=== PATIENT | female | born 1985 | race Caucasian/White ===

== ENCOUNTER → 2020-08-21 | Outpatient (CLI) | payer OTHER ==
[~2020-08-21] MED LIST: DOCU-109 PO; HYDR-2759 PO; METH-38 PO; NAPR220T70 PO; ONDA4TAB7 PO
[2020-08-21 15:23] LABS: BASO # 0.1 x10^3/uL (0.0-0.2); BASO % 1 % (0-3); EOS # 0.1 x10^3/uL (0.0-0.7); EOS % 1 % (0-3); HEMATOCRIT 37.3 % (36.0-47.0); HEMOGLOBIN 12.9 g/dL (12.0-15.5); LYMPH # 1.7 x10^3/uL (1.0-4.8); LYMPH % 20 % (24-48); MEAN CORPUSCULAR HEMOGLOBIN 32 pg (25-35); MEAN CORPUSCULAR HGB CONC 35 g/dL (31-37); MEAN CORPUSCULAR VOLUME 93 fL (79-100); MONO # 0.5 x10^3/uL (0.0-1.1); MONO % 6 % (0-9); NEUT % 72 % (31-73); PLATELET COUNT 233 x10^3/uL (140-400); RED BLOOD COUNT 4.01 x10^6/uL (3.50-5.40); RED CELL DISTRIBUTION WIDTH 11.9 % (11.5-14.5); WHITE BLOOD COUNT 8.3 x10^3/uL (4.0-11.0)
[2020-08-21 15:46] LABS: ALBUMIN/GLOBULIN RATIO 1.3 (1.0-1.7); CREATININE 0.6 mg/dL (0.6-1.0); GFR 113.8; POTASSIUM 3.7 mmol/L (3.5-5.1); TOTAL BILIRUBIN 0.3 mg/dL (0.2-1.0); TOTAL PROTEIN 7.2 g/dL (6.4-8.2)
== END ==
LOC: SURGPAT 13:37
PROVIDERS: ATTEND Neurological Surgery
DX: M51.17 Intervertebral disc disorders with radiculopathy, lumbosacral region (principal)
CPT/HCPCS: 36415; 80053; 85025; 87641

== ENCOUNTER → 2020-08-25 | Outpatient (CLI) | payer OTHER | LOC: LAB 10:04 | PROVIDERS: ATTEND Neurological Surgery | DX: Z01.812 Encounter for preprocedural laboratory examination (principal); M51.17 Intervertebral disc disorders with radiculopathy, lumbosacral region; Z20.822 Contact with and (suspected) exposure to COVID-19 | CPT/HCPCS: U0003 ==

== ENCOUNTER 2020-08-30 10:29 | Day surgery (SDC) | payer OTHER ==
--- NOTE | 2020-08-29 17:51 | PREOP HP ---
DATE OF SERVICE: 08/30/2020 PREOPERATIVE HISTORY AND PHYSICAL HISTORY OF PRESENT ILLNESS: The patient is a pleasant 35-year-old who is having difficulty with pain in her left buttock, posterior thigh and leg. The problem began in and she feels it possibly is related to heavy lifting at that time. Her pain currently is increased with activity or sitting too long. She is taking Aleve, which does help her. She has had physical therapy, which has not given her lasting relief. She has had epidural steroid injections, most recently in April, which have not given her lasting relief. She denies weakness or numbness. CURRENT MEDICATIONS: Aleve. PAST MEDICAL HISTORY: HPV. PAST SURGICAL HISTORY: [place] tooth extraction in 2002. FAMILY HISTORY: Heart disease, migraine headache, and spine problems. SOCIAL HISTORY: Nonsmoker. Employed in [employer]. Drinks alcohol 1-2 times per week. ALLERGIES: CEFACLOR. REVIEW OF SYSTEMS: A 12-point review of systems was performed and is noncontributory except that mentioned above. PHYSICAL EXAMINATION: GENERAL: Alert, pleasant, in no acute distress. HEAD: Normocephalic, atraumatic. SKIN: Warm and dry. MUSCULOSKELETAL: Lumbar paraspinal muscle bulk is normal, restricted range of motion of the lumbar spine, [id number] tenderness of the lower lumbar spine with palpation. Normal range of motion of the lower extremities bilaterally. EXTREMITIES: No clubbing, cyanosis or edema. NEUROLOGIC: Alert and oriented x 3, normal remote and recent memory. Strength is 5/5 in the bilateral lower extremities, sensory was intact to light touch in the lower extremities bilaterally. Reflexes were present and symmetric in the lower extremities bilaterally, positive straight leg raising on the right, positive crossed straight leg raising on the left, normal gait. IMAGING: I reviewed a lumbar MRI scan on that study, there is a right paracentral disc protrusion at L5-S1, which contacts the right S1 nerve root. ASSESSMENT AND PLAN: I believe her symptoms are related to the herniated disk at L5-S1 on the right. She has had extensive conservative measures with no lasting relief. I have recommended a microdiscectomy at L5-S1 on the right. I spoke with her about the surgery including the technique, risk and expected postoperative course. She understands and would like to proceed. GARRISON DUDLEY MD DR: IZABEL/camron JOB#: [id number] / [id number] DOROTHY
[~2020-08-30 10:29] MED LIST changes: +BACITRACIN 50,000 UNIT in IV NORMAL SALINE 1000ML BAG 1,000 ML IRR ONE; -DOCU-109 PO; +GELATIN SPONGE SIZE 100. ONE; -HYDR-2759 PO; +HYDROmorphone 2 MG/ML VIAL IV PRN; +IV RINGERS,LACTATED 1000ML 1,000 ML IV SCH; +KETOROLAC 60 MG/2 ML VIAL. ONE; +LIDOCAINE 1% PF 2 ML VIAL. ID PRN; +LIDOCAINE 1%/EPI 1:100,000 20 ML VIAL. INJ ONE; +LIDOCAINE 2%/EPI 1:100,000 20 ML VIAL. IJ ONE; -METH-38 PO; +MORPHINE SULFATE 2 MG/ML VIAL. IV PRN; -ONDA4TAB7 PO; +ONDANSETRON PF 4 MG/2 ML VIAL. IV PRN; +PROCHLORPERAZINE 10 MG/2 ML VIAL. IV PRN; +THROMBIN TOPICAL 20,000 UNIT SPRAY.SYRN KIT TP ONE; +VANCOMYCIN 1GM IVPB FOR OMNI 250 ML IV PRN; +fentaNYL PF VIAL 100 MCG/2 ML VIAL IV PRN
[2020-08-30] MEDS ORDERED: PHENYLEPHRINE 10 MG/ML VIAL. ONE (12:00)
[2020-08-30] MEDS ORDERED: DESFLURANE > 120 MINUTES IH ONE (12:00)
[2020-08-30] MEDS ORDERED: ROCURONIUM 50 MG/5 ML VIAL. ONE (12:04)
[2020-08-30] MEDS ORDERED: REMIFENTANIL 2 MG VIAL. IV ONE (12:04)
[2020-08-30] MEDS ORDERED: GLYCOPYRROLATE 1 MG/5 ML VIAL. ONE (12:11)
[2020-08-30] MEDS ORDERED: ONDANSETRON PF 4 MG/2 ML VIAL. ONE ×2 (12:13→15:47)
[2020-08-30] MEDS ORDERED: PROPOFOL 10 MG/ML (20ML) VIAL. IV ONE (12:13)
[2020-08-30] MEDS ORDERED: DEXAMETHASONE SOD PHOS 4 MG/ML VIAL ONE (12:13)
[2020-08-30] MEDS ORDERED: PROPOFOL 50 ML IV ONE (12:13)
[2020-08-30] MEDS ORDERED: fentaNYL PF VIAL 100 MCG/2 ML VIAL ONE (12:51)
[2020-08-30] MEDS ORDERED: DESFLURANE 61 TO 120 MINUTES IH ONE (13:35)
[2020-08-30] MEDS ORDERED: DEXAMETHASONE SOD PHOS 20 MG/5 ML VIAL. ONE (13:35)
[2020-08-30] MEDS ORDERED: NEOSTIGMINE METHYLSULFATE 5 MG/5 ML SYRINGE. ONE (15:47)
[2020-08-30] MEDS ORDERED: HYDR-2759 PO (16:09)
[2020-08-30] MEDS ORDERED: METH-38 PO (16:09)
[2020-08-30] MEDS ORDERED: DOCU-109 PO (16:09)
--- NOTE | 2020-08-30 16:10 | DISCH ---
DISCHARGE INSTRUCTIONS Condition on Discharge Condition on Discharge: Stable Activity After Discharge Activity Instructions for Disc: Activity as tolerated, Avoid exertion Other activity instructions: no driving for a week Bathing Instructions: Shower-keep dressing dry Lifting Instructions after Dis: No heavy lifting, No pulling or pushing, Do not lift >10 pounds Diet after Discharge Additional Diet Restrictions: resume home diet Wound Incision Care Wound/Incision Care: Ice to area for comfort Other wound/incision instructi: may remove dressing in 48 hours if dry then may shower, no soaking Contacting the after DC Call your doctor for: Concerns you may have Follow-Up Follow up with: Dr. Dudley's nurse in 2 weeks [phone] GARRISON DUDLEY MD Aug 30, 2020 16:10
[2020-08-30] MEDS ORDERED: HYDROcodone/APAP 5/325MG 1 TAB TABLET PO ONE ×2 (16:30)
[2020-08-30] MEDS ORDERED: ONDA4TAB7 PO (16:43)
[2020-08-30 16:50] VITALS: BP 124/74
--- NOTE | 2020-08-30 19:12 | OP ---
DATE OF SURGERY: 08/30/2020 PREOPERATIVE DIAGNOSES: Herniated lumbar disc, L5-S1, right, with severe right lumbar radiculopathy. POSTOPERATIVE DIAGNOSES: Herniated lumbar disc, L5-S1, right, with severe right lumbar radiculopathy. OPERATION PERFORMED: Hemilaminotomy and microdiscectomy L5-S1, right. The operation was done with EMG monitoring, SSEP monitoring, fluoroscopy, microscopic dissection. SURGEON: Luis Miguel Dudley M.D. CHEMICAL TREATMENT OPERATOR: JUDIE Ramos assisted with the surgery. She assisted with the exposure, the microdiscectomy as well as the closure. OPERATIVE INDICATIONS: The patient is a pleasant 35-year-old woman who has had difficulty with right-sided radicular pain for almost 1 year. She has had epidural steroid injections, physical therapy, which did not give her lasting relief. On imaging studies, there is a large focal disc herniation at L5-S1 on the right and I have recommended lumbar microsurgery. I spoke about the surgery, the risks, technique and expected postoperative course and she wished to go ahead. DESCRIPTION OF PROCEDURE: Following general endotracheal anesthesia, the patient was positioned prone on the Sarthak frame. We were careful to avoid any pressure points. Her lumbar region was prepped and draped in the standard fashion. GERMAIN hose and AV impulse boots were applied for DVT prophylaxis. A microscope was draped. Fluoroscopy was draped and brought into field. Monitoring was established. Vancomycin 1 gram was given prior to surgery. Using fluoroscopic guidance, incision was made directly over the L5-S1 interspace, dissected skin and subcutaneous tissue, reflected the paraspinal muscles and placed a self-retaining retractor. I brought in the microscope. I burred down a generous hemilaminotomy, peeled away thickened ligamentum flavum. The S1 root was lifted and compressed by the large subligamentous disc herniation and I gently retracted the dura medially with a micro nerve root retractor, incised the ligament and removed two large pieces of disc, which helped in markedly decompressing the region. I then entered into the disc space and performed a very generous discectomy. As I worked, the region became very well decompressed. I then explored carefully and felt that I had an excellent discectomy. The root was quite free. I irrigated. Hemostasis was excellent. I closed the wound in layers with absorbable suture and skin was closed with 4-0 subcuticular suture. I felt the surgery went very well. The patient was awakened uneventfully. I was quite pleased with the surgery. LUIS MIGUEL DUDLEY MD DR: DIDI/camron JOB#: [id number] / [id number] DOROTHY
--- NOTE | 2020-09-04 15:31 | PATHOLOGY ---
[facility] Accession Number: [id number] . 01 Material submitted: . back - LUMBAR DISC AND DECOMPRESSION . 02 Diagnosis: Segments of fibrocartilaginous and fibroadipose tissue and bone, lumbar disc and decompression: - Degenerative changes of fibrocartilaginous tissue. . ([facility]:mm; 09/04/2020) [facility] 09/04/2020 1311 Local . 02 Comment: There is no evidence of an acute inflammatory process or malignancy. . (M:mm; 09/04/2020) . 02 Electronically signed: . Alexis Sharpe MD, Pathologist NPI- [id number] . 01 Gross description: . The specimen is received in formalin, labeled "Kathi Rodrigez, lumbar disc and decompression" and consists of multiple segments of yellow to pink-leggett rubbery and gritty soft tissue and bone, measuring 4.0 x 3.0 x 0.8 cm in aggregate. A international account representative portion is submitted in A1 following decalcification. ([facility]; 09/01/2020) SYU/SYU 09/04/2020 1308 Local . 02 Pathologist provided ICD-10: M51.36 . 02 CPT . 090903, 511708 Specimen Comment: A courtesy copy of this report has been sent to [phone] Specimen Comment: Report sent to Performed at: 01 [facility] [address], [place] [id number] MD Josh Ray MD Phone: [phone] Performed at: 02 [facility] [address], [place] [id number] MD Alexis Sharpe MD Phone: [phone]
== END 2020-08-30 17:45 | disposition home or self-care (01) ==
LOC: SURG 10:29 → EDUNIT# 12:00 → SURG 17:45
PROVIDERS: ATTEND Neurological Surgery
DX: M51.17 Intervertebral disc disorders with radiculopathy, lumbosacral region (principal); Z79.899 Other long term (current) drug therapy; Z98.890 Other specified postprocedural states; Z72.89 Other problems related to lifestyle; Z88.8 Allergy status to other drugs, medicaments and biological substances
CPT/HCPCS: 63030; 81025; 88304; 88311; 97116; 97162; 97530; J1100; J1885; J2370; J2405; J2704; J2710; J3010; J3370; J3490; J7030; J7120; 76000